=== PATIENT | male | born 1990 | race Caucasian/White ===

== ENCOUNTER 2021-06-03 11:11 | Inpatient (IN) | payer OTHER ==
[~2021-06-03] VITALS: Ht 157.5 cm; Wt 49.7 kg
[2021-06-03 12:25] LABS: BASOPHILS % (AUTO) 0.3 % (0.0-2.0); HEMATOCRIT 44.4 % (41-53); HEMOGLOBIN 14.7 g/dL (13.5-17.5); LYMPHOCYTES # (AUTO) 1.7 K/uL (1.0-4.8); LYMPHOCYTES % (AUTO) 24.3 % (22.0-44.0); MEAN CORPUSCULAR HEMOGLOBIN 30.3 pg (26.0-34.0); MEAN CORPUSCULAR HGB CONC 33.2 G/dL (31.0-37.0); MEAN CORPUSCULAR VOLUME 91 fL (80-100); MONOCYTES # (AUTO) 0.4 K/uL (0.1-1.0); MONOCYTES % (AUTO) 5.8 % (2.0-9.0); NEUTROPHILS # (AUTO) 4.7 K/uL (1.8-7.7); NEUTROPHILS % (AUTO) 68.6 % (40.0-70.0); PLATELET COUNT (AUTO) 204 K/uL (150-450); RED BLOOD CELL COUNT(AUTO) 4.86 MIL/uL (4.50-5.90); RED CELL DISTRIBUTION WIDTH 14.6 % (11.5-14.5)
[2021-06-03] MEDS ORDERED: KETOROLAC TROMETHAMINE 30 MG/ML VIAL IVP ONE (12:30)
[2021-06-03 12:31] LABS: COVID AG,FIA SOURCE NASOPHARYNGEAL
[2021-06-03 12:33] LABS: ANION GAP 9 mmol/L (8-16); CALCIUM, TOTAL 9.2 mg/dL (8.8-10.5); CARBON DIOXIDE 30 mmol/L (22-29); CHLORIDE 102 mmol/L (98-107); CREATININE 0.88 mg/dL (0.60-1.30); GLOMERULAR FILTR. RATE CALC > 60 mL/min (>60); GLUCOSE,RANDOM 94 mg/dL (70-110); POTASSIUM 4.1 mmol/L (3.5-5.1); SODIUM SERUM 141 mmol/L (136-145); UREA NITROGEN, BLOOD 17 mg/dL (7-18)
[2021-06-03 12:39] LABS: ALANINE AMINOTRANSFERASE 23 U/L (12-78); ALBUMIN 4.5 g/dL (3.4-5.0); ALKALINE PHOSPHATASE 61 U/L (46-116); ASPARTATE AMINOTRANSFERASE 19 U/L (15-37); BILIRUBIN,TOTAL 0.5 mg/dL (0.1-1.0)
[2021-06-03] MEDS ORDERED: ACETAMINOPHEN 325 MG TABLET PO PRN (13:15)
[2021-06-03] MEDS ORDERED: ONDANSETRON HCL 4 MG/2 ML VIAL IVP PRN (13:15)
[2021-06-03] MEDS ORDERED: GuaiFENesin/D-METHORPHAN [SUGAR-FREE] 200-20MG/10 ML SYRUP UDCUP PO PRN (15:45)
[2021-06-03] MEDS ORDERED: MAGNESIUM HYDROXIDE SUSPENSION 30 ML UDCUP PO PRN (15:45)
[2021-06-03] MEDS ORDERED: ONDANSETRON HCL 4 MG TABLET PO PRN (15:45)
[2021-06-03] MEDS ORDERED: MAG HYDROX/AL HYDROX/SIMETH ES 30 ML SUSPENSION UDCUP PO PRN (15:45)
[2021-06-03] MEDS ORDERED: ALBUTEROL SULFATE HFA 90 MCG/PUFF 8 GM INHALER IH PRN (15:45)
[2021-06-03] MEDS ORDERED: DOCUSATE SODIUM 100 MG CAPSULE PO PRN (15:45)
[2021-06-03] MEDS ORDERED: PETROLATUM,WHITE 28 GM JELLY TP PRN (15:45)
[2021-06-03] MEDS ORDERED: NICOTINE 14 MG/24 HOUR PATCH TD PRN (15:45)
[2021-06-03] MEDS ORDERED: LOPERAMIDE HCL 2 MG CAPSULE PO PRN (15:45)
[2021-06-03 20:20] VITALS: BP_SYST 106; BP_SYST 123; BP_DIAS 54; BP_DIAS 81
[2021-06-03] MEDS: MAGNESIUM SULFATE 2 GM, MVI, ADULT NO.1 WITH VIT K 10 ML, THIAMINE 100 MG, FOLIC ACID 1... IV SCH ×5 (21:53)
[2021-06-03] MEDS: KETOROLAC TROMETHAMINE 15 MG/ML VIAL IVP PRN (21:59)
[2021-06-04 00:30] VITALS: BP 106/54
[2021-06-04 04:15] VITALS: BP 109/61
[2021-06-04 07:34] VITALS: BP 95/62
[2021-06-04 09:38] LABS: BASOPHILS % (AUTO) 0.6 % (0.0-2.0); EOSINOPHILS % (AUTO) 1.7 % (1.0-6.0); HEMATOCRIT 42.4 % (41-53); LYMPHOCYTES # (AUTO) 2.2 K/uL (1.0-4.8); LYMPHOCYTES % (AUTO) 32.9 % (22.0-44.0); MEAN CORPUSCULAR HEMOGLOBIN 30.2 pg (26.0-34.0); MEAN CORPUSCULAR HGB CONC 33.1 G/dL (31.0-37.0); MEAN CORPUSCULAR VOLUME 91 fL (80-100); MONOCYTES # (AUTO) 0.6 K/uL (0.1-1.0); MONOCYTES % (AUTO) 9.1 % (2.0-9.0); NEUTROPHILS # (AUTO) 3.7 K/uL (1.8-7.7); NEUTROPHILS % (AUTO) 55.7 % (40.0-70.0); PLATELET COUNT (AUTO) 183 K/uL (150-450); RED BLOOD CELL COUNT(AUTO) 4.64 MIL/uL (4.50-5.90); RED CELL DISTRIBUTION WIDTH 14.7 % (11.5-14.5)
[2021-06-04 09:54] LABS: ANION GAP 8 mmol/L (8-16); CALCIUM, TOTAL 8.7 mg/dL (8.8-10.5); CARBON DIOXIDE 29 mmol/L (22-29); CHLORIDE 103 mmol/L (98-107); CREATININE 0.96 mg/dL (0.60-1.30); GLOMERULAR FILTR. RATE CALC > 60 mL/min (>60); GLUCOSE,RANDOM 91 mg/dL (70-110); POTASSIUM 3.9 mmol/L (3.5-5.1); SODIUM SERUM 140 mmol/L (136-145); UREA NITROGEN, BLOOD 16 mg/dL (7-18)
[2021-06-04] MEDS: ONDANSETRON HCL 4 MG/2 ML VIAL IVP PRN (11:53)
[2021-06-04] MEDS: KETOROLAC TROMETHAMINE 15 MG/ML VIAL IVP PRN ×2 (11:53→18:11)
[2021-06-04] MEDS: MAGNESIUM SULFATE 2 GM, MVI, ADULT NO.1 WITH VIT K 10 ML, THIAMINE 100 MG, FOLIC ACID 1... IV SCH ×5 (18:11)
[2021-06-04 20:25] VITALS: BP 112/55
[2021-06-05] MEDS: MELATONIN 3 MG TABLET PO PRN ×2 (00:10→20:42)
[2021-06-05 05:05] VITALS: BP 100/55
[2021-06-05] MEDS: IBUPROFEN 400 MG TABLET PO PRN (07:52)
[2021-06-05] MEDS: ONDANSETRON HCL 4 MG/2 ML VIAL IVP PRN (07:52)
[2021-06-05 08:00] VITALS: BP 107/64
[2021-06-05] MEDS: KETOROLAC TROMETHAMINE 15 MG/ML VIAL IVP PRN (11:14)
[2021-06-05] MEDS ORDERED: SODIUM CHLORIDE 0.9% 1,000 ML IV ONE (14:00)
[2021-06-05] MEDS: DICYCLOMINE HCL 10 MG CAPSULE PO PRN (15:12)
[2021-06-05 20:32] VITALS: BP 124/58
[2021-06-05] MEDS: ACETAMINOPHEN 325 MG TABLET PO PRN (20:40)
[2021-06-05] MEDS: CloNIDine HCL 0.1 MG TABLET PO PRN (20:40)
[2021-06-05 23:38] VITALS: BP 112/56
[2021-06-06] MEDS: ONDANSETRON HCL 4 MG/2 ML VIAL IVP PRN ×4 (03:30→20:47)
[2021-06-06] MEDS: MAGNESIUM SULFATE 2 GM, MVI, ADULT NO.1 WITH VIT K 10 ML, THIAMINE 100 MG, FOLIC ACID 1... IV SCH ×10 (03:30→20:47)
[2021-06-06 04:19] VITALS: BP 107/46
[2021-06-06 07:45] VITALS: BP 108/58
[2021-06-06] MEDS: IBUPROFEN 400 MG TABLET PO PRN (08:23)
[2021-06-06 11:03] LABS: AMPHET/METH SCREEN,URINE NEGATIVE (NEGATIVE); BARBITURATE SCREEN, URINE NEGATIVE (NEGATIVE); BENZODIAZEPINES SCREEN,URINE POSITIVE (NEGATIVE); CANNABINOID SCREEN,URINE POSITIVE (NEGATIVE); COCAINE SCREEN,URINE NEGATIVE (NEGATIVE); METHADONE SCREEN, URINE POSITIVE (NEGATIVE); OPIATE SCREEN,URINE NEGATIVE (NEGATIVE)
[2021-06-06 11:05] LABS: PHENCYCLIDINE SCREEN,URINE NEGATIVE (NEGATIVE)
[2021-06-06] MEDS: DICYCLOMINE HCL 10 MG CAPSULE PO PRN (15:43)
[2021-06-06 16:39] LABS: APPEARANCE,URINE CLEAR (CLEAR); BILIRUBIN,URINE NEGATIVE (NEGATIVE); GLUCOSE, URINE (UA) NEGATIVE (NEGATIVE); KETONES,URINE >=80 mg/dL (NEGATIVE); LEUKOCYTE ESTERASE ,URINE NEGATIVE (NEGATIVE); NITRATE,URINE NEGATIVE (NEGATIVE); OCCULT BLOOD,URINE NEGATIVE (NEGATIVE); PROTEIN,URINE NEGATIVE (NEGATIVE)
[2021-06-06 17:14] LABS: BACTERIA,URINE None Seen /HPF (None Seen); RBC,URINE None Seen /HPF (0-2); WBC,URINE None Seen /HPF (0-5)
[2021-06-06] MEDS: TraMADol HCL 50 MG TABLET PO PRN (17:51)
[2021-06-06 20:20] VITALS: BP 117/57
[2021-06-06] MEDS: MELATONIN 3 MG TABLET PO PRN (20:47)
[2021-06-06] MEDS: ACETAMINOPHEN 325 MG TABLET PO PRN (20:47)
[2021-06-06] MEDS: CloNIDine HCL 0.1 MG TABLET PO PRN (23:16)
[2021-06-06] MEDS ORDERED: METHADONE HCL 10 MG TABLET PO ONE (23:30)
[2021-06-06] MEDS: LORazepam 2 MG/ML VIAL IVP PRN (23:45)
[2021-06-07 05:09] VITALS: BP 111/57
[2021-06-07] MEDS: LORazepam 2 MG/ML VIAL IVP PRN (05:09)
[2021-06-07] MEDS: TraMADol HCL 50 MG TABLET PO PRN (07:54)
[2021-06-07] MEDS: ONDANSETRON HCL 4 MG/2 ML VIAL IVP PRN (07:54)
[2021-06-07] MEDS: MAGNESIUM SULFATE 2 GM, MVI, ADULT NO.1 WITH VIT K 10 ML, THIAMINE 100 MG, FOLIC ACID 1... IV SCH ×5 (07:58)
[2021-06-07 08:35] VITALS: BP 112/59
[2021-06-07 16:21] VITALS: BP 116/58
[2021-06-07 20:24] VITALS: BP 134/64
[2021-06-07] MEDS: ACETAMINOPHEN 325 MG TABLET PO PRN (20:48)
[2021-06-07 23:09] VITALS: BP 115/69
[2021-06-08 05:34] VITALS: BP 115/62
[2021-06-08] MEDS: ONDANSETRON HCL 4 MG/2 ML VIAL IVP PRN (08:05)
[2021-06-08] MEDS: ACETAMINOPHEN 325 MG TABLET PO PRN (08:06)
[2021-06-08 08:08] VITALS: BP 116/70
[2021-06-08] MEDS ORDERED: ACET-2247 PO (11:20)
[2021-06-08] MEDS ORDERED: ALBU8HFA IH (11:21)
[2021-06-08] MEDS ORDERED: LOPE2 PO (11:21)
[2021-06-08] MEDS ORDERED: MAAL30 PO (11:21)
[2021-06-08 11:23] VITALS: BP 114/72
[2021-06-08] MEDS: TraMADol HCL 50 MG TABLET PO PRN (13:54)
[2021-06-08] MEDS: CloNIDine HCL 0.1 MG TABLET PO PRN (13:54)
[2021-06-08 15:32] VITALS: BP 122/57
[2021-06-08 20:33] VITALS: BP 137/76
[2021-06-09] MEDS: TraMADol HCL 50 MG TABLET PO PRN (01:16)
[2021-06-09] MEDS: CloNIDine HCL 0.1 MG TABLET PO PRN (01:16)
[2021-06-09 04:16] VITALS: BP 114/75
== END 2021-06-09 06:30 | DRG 896 ==
LOC: EMS 11:17 → 6S 19:05
PROVIDERS: ADMIT Hospitalist; ATTEND Hospitalist
DX: F11.23 Opioid dependence with withdrawal (principal); E43 Unspecified severe protein-calorie malnutrition; Z20.822 Contact with and (suspected) exposure to COVID-19; F13.239 Sedative, hypnotic or anxiolytic dependence with withdrawal, unspecified; G40.909 Epilepsy, unspecified, not intractable, without status epilepticus; F17.210 Nicotine dependence, cigarettes, uncomplicated; Z68.20 Body mass index [BMI] 20.0-20.9, adult
CPT/HCPCS: 71045; 80048; 80053; 80307; 81001; 85025; 99285; J1885; J2060; J2405; J3411; J3475; J3490; J7030; Q0162; 36415-L1; 36415-TC